=== PATIENT | male | born 1985 | race Caucasian/White ===

== ENCOUNTER 2017-06-22 12:20 | Emergency (ER) | payer OTHER ==
[~2017-06-22] VITALS: Ht 195.6 cm; Wt 155.0 kg
[~2017-06-22 12:20] MED LIST: BACT800T5 PO; CLIN150 PO; ROBA500T PO
[2017-06-22 12:40] VITALS: BP 172/98; PULSE 96; RESP 16; TEMP 98.9; O2SAT 98
[2017-06-22] MEDS ORDERED: IBUP800T23 PO ×2 (12:55→15:21)
[2017-06-22] MEDS ORDERED: ROBA500T PO (12:55)
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
[2017-06-22] MEDS ORDERED: ORPHENADRINE INJ 60 MG/2 ML AMP IM ONE (14:15)
[2017-06-22] MEDS ORDERED: KETOROLAC TROMETHAMINE 60 MG/2 ML (IM) VIAL IM ONE (14:15)
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
[2017-06-22] MEDS ORDERED: CYCL1TAB29 PO (15:21)
== END 2017-06-22 15:27 | disposition home or self-care (01) ==
LOC: PHEFT 12:20
DX: M54.41 Lumbago with sciatica, right side (principal); F17.210 Nicotine dependence, cigarettes, uncomplicated; Z86.73 Personal history of transient ischemic attack (TIA), and cerebral infarction without residual deficits; Z87.442 Personal history of urinary calculi
CPT/HCPCS: 72131; 96372; 99284; J1885; J2360